=== PATIENT | female | born 1975 | race Caucasian/White ===

== ENCOUNTER 2017-03-16 21:10 | Emergency (ER) | payer OTHER ==
[~2017-03-16] VITALS: Ht 165.1 cm; Wt 72.7 kg
[~2017-03-16 21:10] MED LIST: BUPROBAN150 MG PO; CHANTIX1 EACH; CITRATE OF MAG296 ML PO; COLACE100 MG PO; ERGOCALCIF50000 UNIT PO; FLEXERIL10 MG PO; FLUOXETINE HCL20 MG; GEODON60 MG PO; INDOCIN SR75 MG PO; KLONOPIN1 M2 PO; LORTAB 5-325 M1 EACH PO; NAPROSYN500 MG PO; OXYCODONE-ACET1 EACH PO; PERCOCET 5/31 TABLET PO; PROZAC20 MG PO; TYLENOL EXTRA500 MG PO; ULTRAM50 MG PO; VICODIN 5-3001 EACH PO; VITAMIN D2000 UNIT; WELLBUTRIN100 M1 PO; ZANAFLEX4 M1 PO; ZIPRASIDONE HCL40 MG; ZOFRAN ODT4 MG PO; ZOFRAN4 MG PO
[2017-03-16] MEDS ORDERED: FLEXERIL10 MG PO (23:20)
[2017-03-16] MEDS ORDERED: MEDROL DOSEPAK4 MG PO (23:20)
[2017-03-16 23:37] VITALS: BP 112/88
== END 2017-03-16 23:38 | disposition home or self-care (01) ==
LOC: EME 21:10
DX: M79.605 Pain in left leg (principal); M62.838 Other muscle spasm; M25.562 Pain in left knee; M25.552 Pain in left hip; M54.5 Low back pain; F17.200 Nicotine dependence, unspecified, uncomplicated
CPT/HCPCS: J3010; J7512

== ENCOUNTER 2017-03-23 22:02 | Emergency (ER) | payer OTHER ==
[~2017-03-23] VITALS: Ht 165.1 cm; Wt 74.8 kg
[~2017-03-23 22:02] MED LIST changes: +MEDROL DOSEPAK4 MG PO
[2017-03-23] MEDS ORDERED: PERCOCET 5/31 TABLET PO (23:44)
[2017-03-23] MEDS ORDERED: NAPROXEN500 MG PO (23:44)
[2017-03-24 00:36] VITALS: BP 111/77
== END 2017-03-24 00:40 | disposition home or self-care (01) ==
LOC: EME 22:02
DX: M54.42 Lumbago with sciatica, left side (principal); M25.562 Pain in left knee
CPT/HCPCS: 72100; 73564; 99281; 99284; J1885